=== PATIENT | male | born 1950 | race Caucasian/White ===

== ENCOUNTER 2021-05-02 18:26 | Inpatient (IN) | payer MEDICARE, OTHER ==
[~2021-05-02] VITALS: Ht 180.3 cm; Wt 90.7 kg
[2021-05-02 19:24] LABS: BASOPHILS ABSOLUTE AUTO 0.05 K/mm3 (0.00-0.23); BASOPHILS PERCENT AUTO 1 % (0-2); EOSINOPHILS ABSOLUTE AUTO 0.12 K/mm3 (0.00-0.68); EOSINOPHILS PERCENT AUTO 1 % (0-6); Hematocrit 43.9 % (37.0-53.0); Hemoglobin 13.4 g/dL (13.5-17.5); IMMATURE GRAN ABSOLUTE AUTO 0.05 K/mm3 (0.00-0.10); IMMATURE GRAN PERCENT AUTO 1 % (0-1); LYMPHOCYTES ABSOLUTE AUTO 1.07 K/mm3 (0.84-5.20); LYMPHOCYTES PERCENT AUTO 10 % (21-46); MONOCYTES ABSOLUTE AUTO 1.05 K/mm3 (0.16-1.47); MONOCYTES PERCENT AUTO 10 % (4-13); Mean Corpuscular HGB 27.7 pg (26.0-34.0); Mean Corpuscular HGB Conc 30.5 g/dL (31.5-36.5); Mean Corpuscular Volume 91 fL (80-100); Mean Platelet Volume 11.3 fL (9.1-12.4); NEUTROPHILS ABSOLUTE AUTO 8.74 K/mm3 (1.96-9.15); NEUTROPHILS PERCENT AUTO 79 % (41-73); Platelet Count 224 K/mm3 (150-400); RDW Coefficient Variation 18.1 % (11.7-14.2); RDW Standard Deviation 59.3 fL (35.1-46.3); Red Blood Cell Count 4.84 M/mm3 (4.30-5.90); White Blood Cell Count 11.08 K/mm3 (4.00-11.30)
[2021-05-02 20:05] LABS: Albumin, Blood 3.5 g/dL (3.4-5.0); Albumin/Globulin Ratio 0.8 (0.8-1.8); Bilirubin, Total 0.9 mg/dL (0.1-1.0); Bun/Creatinine Ratio 23.2 (12.0-20.0); Calcium, Blood 9.1 mg/dL (8.5-10.1); Creatinine, Blood 1.38 mg/dL (0.60-1.20); Globulin, Blood 4.2 g/dL (2.2-4.0); Potassium, Blood 3.7 mmol/L (3.5-5.5); Total Protein, Blood 7.7 g/dL (6.4-8.2); Troponin I 0.062 ng/mL (0.000-0.040)
[2021-05-02] MEDS ORDERED: BENZ100A PO (22:42)
[2021-05-02] MEDS ORDERED: BUDE.25 INH (22:43)
[2021-05-02] MEDS ORDERED: Brovana15 MCG/2 M INH (22:44)
[2021-05-02] MEDS ORDERED: POTA10T PO (22:44)
[2021-05-02] MEDS ORDERED: FURO40 PO (22:44)
[2021-05-02] MEDS ORDERED: LOSA25 PO (22:45)
--- NOTE | 2021-05-02 23:13 | NUR ---
ADMIT NOTE HANDOFF RECEIVED FROM CONTAINER WASHERSHE [place]. PT ARRIVED TO FLOOR VIA WHEELCHAIR. PT ORIENTED TO UNIT. CALL BUTTON WITHIN REACH.
--- NOTE | 2021-05-03 03:59 | NUR ---
SHIFT SUMMARY ADMITTED FOR CHF EXACERBATION FROM ER THIS SHIFT. FULL CODE. TELEMETRY: TACH @ 103. PLAN IS TO DIURESE. HE IS HOMELESS AND NONCOMPLIANT WITH MEDS. HE MIGHT BE HALLUCINATING, HE CALLS OUT FREQUENTLY AND YELLS - BUT DENIES NEEDS. HE CONTINUOUSLY REQUESTS SNACKS. HE IS GRUMPY/ANGRY WITH NURSING STAFF. HE WILL HAVE AN ECHO TODAY. CARDIAC DIET. HE DOES STATE HE IS M[place] B[place]. HIS PENIS IS SWOLLEN THERE IS SANGUINOUS DISCHARGE.
[2021-05-03 05:25] LABS: Bun/Creatinine Ratio 22.2 (12.0-20.0); Calcium, Blood 8.8 mg/dL (8.5-10.1); Creatinine, Blood 1.44 mg/dL (0.60-1.20); Potassium, Blood 3.7 mmol/L (3.5-5.5)
--- NOTE | 2021-05-03 05:51 | NUR ---
PT MOVED TO [facility]. PT MOVED TO SCU. PT IS FREQUENTLY YELLING OUT, HE IS DIFFICULT TO REDIRECT. HE MAY BE HALLUCINATING. HE DID PULL OUT HIS IV. HE SEEMS TO HAVE DIFFICULTY UNDERSTANDING OR FOLLOWING DIRECTION. HANDOFF REPORT GIVEN TO SHE SCHULTZ. PERSONAL POSSESSIONS WITH PT.
--- NOTE | 2021-05-03 05:51 | NUR ---
ASSUMED CARE OF PT IN SCU. PT. A&O, AGITATED, AND PACING IN ROOM. HAD NO COMPLAINTS OF PAIN OR DISCOMFORT. RESTING QUIETLY IN BED AT THIS TIME. WILL CONT TO MONITOR.
--- NOTE | 2021-05-03 12:35 | NUR ---
Echocardiogram completed.
--- NOTE | 2021-05-03 16:55 | NUR ---
SHIFT SUMMARY PATIENT ALERT AND ORIENTED THROUGHOUT THIS SHIFT. PATIENT ON IV DIURETICS. PATIENT REMAINS EDEMATOUS. PATIENT WITH DIFFICULTY BREATHING POSITIONALLY. PATIENT STATES HE JUST CAN'T GET COMFORTABLE. PATIENT RECEIVING PRN BREATHING TREATMENTS. O2 SATS REMAIN > 90. PATIENT CURRENTLY SITTING UP IN BED WATCHING TELEVISION.
--- NOTE | 2021-05-03 18:41 | NUR ---
PT ARRIVED TO UNIT FROM MEDICAL, RECEIVED BEDSIDE REPORT. VSS, ON ROOM AIR. PT DECLINES TO ANSWER QUESTIONS AT THIS TIME, LAYING IN BED IN POSITION. BED IN LOW POSITION, CALL ALARM IN REACH.
[2021-05-03 18:50] LABS: Magnesium, Blood 2.1 mg/dL (1.6-2.4)
[2021-05-03 18:53] LABS: Thyroid Stimulating Hormone 3.57 uIU/mL (0.360-4.800)
[2021-05-04 04:19] LABS: Bun/Creatinine Ratio 22.8 (12.0-20.0); Calcium, Blood 8.4 mg/dL (8.5-10.1); Creatinine, Blood 1.45 mg/dL (0.60-1.20); Potassium, Blood 3.5 mmol/L (3.5-5.5)
--- NOTE | 2021-05-04 04:53 | NUR ---
SHIFT SUMMARY ASSUMED CARE OF PT AT 1900. PT IS A/OX3 WITH TIMES OF CONFUSION. HEART SOUNDS REGULAR, PT HAD MULTIPLE EPISODES OF ABILIO CARDIA DOWN IN THE 40S BPM. PT WAS ASYMPTOMATIC, VITAL SIGNS STABLE. LUNG SOUNDS CLEAR BUT PT HAS HAD A DRY COUGH ALL T/O THE NIGHT. PT WAS GIVEN COUGH MEDICIN WITHOUT REULTS AND REFUSED MORE THIS AM. PT USED URINAL T/O THE NIGHT. PT PENIS IS VERY EDEMADOUS, ALONG WITH IS GENERALIZED BODY AND 3+ PITTING EDEMA IN LEGS. PT STATES THAT THE SWELLING IS GETTING BETTER. PT IS VERY UPSET ABOUT NOT BEING ABOUT TO GET UP OUT OF BED, WHEN OFFERED A RECLINER HE REFUSED. PT IS VERY IRRITABLE THIS AM. CALL LIGHT IN REACH, BED IN LOWEST POSTION.
--- NOTE | 2021-05-04 09:12 | NUR ---
Call to cardiology office to request consultation ordered by Dr. Bryant.
--- NOTE | 2021-05-04 09:56 | NUR ---
Notified by Jennifer Moreira, Tele athletic monitor of 2 PVCs, followed by a junctional beat, sinus beats, and Premature atrial beats. Tele strip received and placed in pt's paper chart.
--- NOTE | 2021-05-04 10:58 | NUR ---
Dr. Bryant and care coordination manager Tari here to round on the patient. He is irritable, rude, and insulting with cursing to the provider. This is consistent with his behaviour towards staff yesterday as well. Calling Dr. Kirkland office in [place] to obtain records. This appears to have been a provider of the pt in the past. The pt is not remembering his PCP's name at this time.
--- NOTE | 2021-05-04 11:30 | NUR ---
Late entry note did not save. saw pt last evening on medical floor very short of breath and aggitated unable to lay down due to dyapne having dysrythmia. pt states he does not have family that he is in contact with he has not heard from his friends. Careful review with him of how sick he is asked if he woud want and life support or recusitaion he said no just put a bullet in me and let me go. He is very angry and distruaght spoke of fall out with his family. REview of pt condition with nurse and dr yin pt moved to pcu.
--- NOTE | 2021-05-04 12:56 | NUR ---
Echocardiogram from December 2020 received by fax from [facility] in [place]. Results of which were called to Dr. Bryant, who said that she will be here to see that patient this afternoon. the pt is c/o feeling like he is drowning. He is lying on his left side, left arm supporting his head, with dyspnea. Spo2 91-94% on room air. Lung sounds are clear but diminshed to auscultation. No crackles, no wheezing noted. Suggested that the pt have the HOB raised, but we tried that and he said that it felt worse. Requested that it be lowered again, which was done. His RR is moderately labored, and he is having to take a breath in the middle of some of his sentences. RR 20-24. STates he is having trouble sleeping, and that no position is comfortable unless he is sitting up. I offered him a recliner chair but he said that was no good.
--- NOTE | 2021-05-04 13:05 | NUR ---
Administering IV lasix as scheduled now.
--- NOTE | 2021-05-04 13:56 | NUR ---
since diuretic, pt has voided approx 300+cc. Added fluid restriction, and explained to pt about fluid retriction to aid with diuresis to help with heart failure and related dyspnea. He was somewhat receptive. Apologized for his "bad attitude". At this time, resting on his right side, RR 36/min, at times appears labored. HOB is not elevated, his eyes are closed and he appears to be sleeping.
--- NOTE | 2021-05-04 16:03 | NUR ---
pt has diuresed 950 cc voided since 1 pm today. Breathing appears to be easier; pt is lying on his left side, without elevation of HOB. Vitals taken and documented.
[2021-05-05 04:11] LABS: BASOPHILS ABSOLUTE AUTO 0.07 K/mm3 (0.00-0.23); BASOPHILS PERCENT AUTO 1 % (0-2); EOSINOPHILS ABSOLUTE AUTO 0.21 K/mm3 (0.00-0.68); EOSINOPHILS PERCENT AUTO 2 % (0-6); Hematocrit 42.8 % (37.0-53.0); Hemoglobin 13.8 g/dL (13.5-17.5); IMMATURE GRAN ABSOLUTE AUTO 0.04 K/mm3 (0.00-0.10); IMMATURE GRAN PERCENT AUTO 0 % (0-1); LYMPHOCYTES ABSOLUTE AUTO 1.29 K/mm3 (0.84-5.20); LYMPHOCYTES PERCENT AUTO 12 % (21-46); MONOCYTES ABSOLUTE AUTO 0.86 K/mm3 (0.16-1.47); MONOCYTES PERCENT AUTO 8 % (4-13); Mean Corpuscular HGB 28.6 pg (26.0-34.0); Mean Corpuscular HGB Conc 32.2 g/dL (31.5-36.5); Mean Corpuscular Volume 89 fL (80-100); Mean Platelet Volume 11.8 fL (9.1-12.4); NEUTROPHILS ABSOLUTE AUTO 8.57 K/mm3 (1.96-9.15); NEUTROPHILS PERCENT AUTO 78 % (41-73); Platelet Count 208 K/mm3 (150-400); RDW Coefficient Variation 17.8 % (11.7-14.2); RDW Standard Deviation 55.2 fL (35.1-46.3); Red Blood Cell Count 4.83 M/mm3 (4.30-5.90); White Blood Cell Count 11.04 K/mm3 (4.00-11.30)
--- NOTE | 2021-05-05 04:21 | NUR ---
SHIFT SUMMARY PATIENT IS ALERT AND ORIENTED. 02 SATS 94% ON RA. PATIENTS RESPIRATORY RATE INCREASES AT TIMES TO THE 30s, SATS REMAIN >90%. PATIENT IS INDEPENDENT IN THE ROOM. USES URINAL. VSS, NO ACUTE CHANGES. CALL LIGHT IN REACH.
[2021-05-05 04:48] LABS: Bun/Creatinine Ratio 25.2 (12.0-20.0); Calcium, Blood 8.8 mg/dL (8.5-10.1); Creatinine, Blood 1.43 mg/dL (0.60-1.20); Potassium, Blood 3.4 mmol/L (3.5-5.5)
--- NOTE | 2021-05-05 07:19 | NUR ---
Dr. Osborne here to see the patient. Pt to be NPO after breakfast. Plan is for echocardiogram today, and probably wait to see how pt's heart rhythm goes over next 12-24 hours now that pt has not been taking beta blockers. This morning he states he feels fine, but blood pressure is elevated.
--- NOTE | 2021-05-05 07:54 | NUR ---
pt accidentally pulled IV.
[2021-05-05] MEDS ORDERED: METO25 PO (10:08)
[2021-05-05] MEDS ORDERED: SYMBICORT 160-4.6 GM INH (10:09)
--- NOTE | 2021-05-05 10:49 | NUR ---
Pt states that his friend is coming to take him to [place]. States he doesn't have a place to stay, and hopes that his friend can also take him to the pharmacy to get his medications.
--- NOTE | 2021-05-05 11:20 | NUR ---
Today the pt appears to be breathing somewhat more easily than yesterday, able to ambulate to the bathroom and around the room independently. Has a fatalistic attitude toward his situation. States that he has no family that cares about him, and that he doesn't really care if he lives much longer with his heart failure. Denies any suicidal ideation. He verbalizes that if he had family then it would be more important for him to take better care of himself. He states that my questions are nosy, but that he understands that we are trying to help. States that he will "figure it out" with his prescriptions and follow up with PCP, but declines any assistance from us with regard to homeless [facility], social services designee, etc. States he wants to get back to [place]. The pt was taken out in wheelchair by the PCT after review of discharge instructions. States that he will wait outside for his ride to come and get him.
== END 2021-05-05 11:07 | disposition home or self-care (01) | DRG 291 ==
LOC: ER 18:26 → MEDS 18:27 → PCU 05-03 18:25
PROVIDERS: Internal Medicine; Physician Assistant; ADMIT Internal Medicine
DX: I13.0 Hypertensive heart and chronic kidney disease with heart failure and stage 1 through stage 4 chronic kidney disease, or unspecified chronic kidney disease (principal); I50.23 Acute on chronic systolic (congestive) heart failure; C34.90 Malignant neoplasm of unspecified part of unspecified bronchus or lung; N17.9 Acute kidney failure, unspecified; F17.210 Nicotine dependence, cigarettes, uncomplicated; J44.9 Chronic obstructive pulmonary disease, unspecified; N18.9 Chronic kidney disease, unspecified; Z91.14 Patient's other noncompliance with medication regimen
CPT/HCPCS: 36415; 71046; 80048; 80053; 83690; 83735; 83880; 84443; 84484; 85025; 93005; 93010; 93306; 94640; 94760; 96372; 96374; 96376; 99285-25; A9270; G0378; J1650; J1940